=== PATIENT | male | born 1980 | race Caucasian/White ===

== ENCOUNTER 2018-01-13 17:38 | Inpatient (IN) | payer MEDICAID, OTHER ==
[~2018-01-13 17:38] MED LIST: ETOMIDATE 20 MG INJ; ROCURONIUM 50 MG INJ
[2018-01-13] MEDS: LORAZEPAM 2 MG INJ IV ×3 (17:46→19:04)
[2018-01-13] MEDS: SOD CHLORIDE 0.9% 1,000 ML IV (18:07)
[2018-01-13 18:13] LABS: ADD MAN DIFF? NO
[2018-01-13 18:16] LABS: BASOPHIL # 0.1 10^3/ul (0.0-0.1); BASOPHILS % 0.4 % (0.0-2.0); EOSINOPHILS # 0.1 10^3/ul (0.0-0.5); EOSINOPHILS % 1.1 % (0.0-7.0); HEMATOCRIT 46.6 % (42.0-52.0); LYMPHOCYTES # 2.2 10^3/ul (0.8-2.9); LYMPHOCYTES % 19.8 % (15.0-51.0); MEAN CORPUSCULAR HEMOGLOBIN 30.3 pg (29.0-33.0); MEAN CORPUSCULAR HGB CONC 34.3 g/dl (32.0-37.0); MEAN CORPUSCULAR VOLUME 88.3 fl (82.0-101.0); MEAN PLATELET VOLUME 11.4 fl (7.4-10.4); MONOCYTE # 0.7 10^3/ul (0.3-0.9); NEUTROPHIL # 8.2 10^3/ul (1.6-7.5); NEUTROPHILS % 72.3 % (39.0-77.0); PLATELET COUNT 215 10^3/UL (140-415); RED BLOOD COUNT 5.28 10^6/ul (4.70-6.10); RED CELL DISTRIBUTION WIDTH 13.1 % (11.5-14.5)
[2018-01-13 18:16] LABS: WHITE BLOOD COUNT 11.3 10^3/ul (4.8-10.8)
[2018-01-13 18:35] LABS: ALANINE AMINOTRANSFERASE 31 IU/L (13-69); ALBUMIN 4.7 g/dl (3.3-4.9); ALBUMIN/GLOBULIN RATIO 1.38; ALKALINE PHOSPHATASE 98 IU/L (42-121); ANION GAP 18 (8-16); ASPARTATE AMINO TRANSFERASE 23 IU/L (15-46); BILIRUBIN,INDIRECT 0.6 mg/dl (0-1.1); BILIRUBIN,TOTAL 0.6 mg/dl (0.2-1.3); BLOOD UREA NITROGEN 20 mg/dl (7-20); CALCIUM 9.3 mg/dl (8.4-10.2); CARBON DIOXIDE 21 mmol/L (21-31); CHLORIDE 108 mmol/L (97-110); CREATININE 0.91 mg/dl (0.61-1.24); GLUCOSE 112 mg/dl (70-220); POTASSIUM 3.7 mmol/L (3.5-5.1); SODIUM 143 mmol/L (135-144); TOTAL PROTEIN 8.1 g/dl (6.1-8.1)
[2018-01-13 18:36] LABS: ADD UMIC YES; UR ASCORBIC ACID NEGATIVE (NEGATIVE); UR BILIRUBIN (Dip) NEGATIVE (NEGATIVE); UR BLOOD (Dip) 1+ mg/dL (NEGATIVE); UR CLARITY CLOUDY (CLEAR); UR COLOR YELLOW (YELLOW); UR GLUCOSE (Dip) NEGATIVE (NEGATIVE); UR KETONES (Dip) NEGATIVE (NEGATIVE); UR LEUKOCYTE ESTERASE (Dip) NEGATIVE Leu/ul (NEGATIVE); UR MUCUS MANY /HPF (NONE SEEN); UR NITRITE (Dip) NEGATIVE (NEGATIVE); UR RBC 15 /HPF (0-5); UR SPECIFIC GRAVITY (Dip) 1.028 (1.003-1.030); UR TOTAL PROTEIN (Dip) 1+ mg/dl (NEGATIVE); UR UROBILINOGEN (Dip) NEGATIVE (NEGATIVE); UR WBC 0 /HPF (0-5)
[2018-01-13 18:40] LABS: LACTIC ACID 4.4 mmol/L (0.5-2.0)
[2018-01-13 18:41] LABS: ACETAMINOPHEN < 10.0 ug/ml (10.0-30.0); SALICYLATE < 1.0 mg/dl (5.0-30.0)
[2018-01-13 18:45] LABS: AMPHETAMINE/METHAMPHETAMINE Negative (NEGATIVE); BARBITURATES Negative (NEGATIVE); BENZODIAZEPINES Negative (NEGATIVE); CANNABINOIDS Negative (NEGATIVE); COCAINE Negative (NEGATIVE); OPIATES Negative (NEGATIVE); TROPONIN-I < 0.010 ng/ml (0.000-0.120)
[2018-01-13] MEDS: PROPOFOL 100 ML IV ×3 (18:52→22:09)
[2018-01-13 20:13] LABS: AADO2 Arterial 197.5 mmHg (7.0-24.0); Arterial Base Excess -3.7 mmol/L (-3.0-3); Arterial Blood Gas Oxygen Sat 99.5 mmHG (95.0-98.0); Arterial COHb 0.1 % (0.0-3.0); Arterial Fraction of Oxyhgb 98.9 % (93.0-99.0); Arterial HCO3 21.6 mmol/L (22.0-26.0); Arterial MetHb 0.5 % (0.0-1.5); Arterial Total Hemglobin 15.1 g/dl (12.0-18.0); Arterial pCO2 40.2 mmhg (35-45); Blood Gas Mean Airway Pressure 7.6; MODE VENT AC; Site Right Brachial
[2018-01-13] MEDS ORDERED: LORAZEPAM 2 MG INJ IV (20:30)
[2018-01-13] MEDS ORDERED: NACL 0.9% 3 ML SYG IV (20:30)
[2018-01-13] MEDS: D5W-0.45 NACL + KCL 20 MEQ 1,000 ML IV (21:31)
[2018-01-13] MEDS: LEVETIRACETAM 500 MG (PMX) 100 ML IVPB (22:54)
[2018-01-14] MEDS: PROPOFOL 100 ML IV ×2 (02:50→06:53)
[2018-01-14] MEDS: morphine 2 MG INJ IV (03:37)
[2018-01-14 05:05] LABS: ADD MAN DIFF? NO
[2018-01-14 05:25] LABS: BASOPHILS % 0.4 % (0.0-2.0); EOSINOPHILS # 0.1 10^3/ul (0.0-0.5); EOSINOPHILS % 0.8 % (0.0-7.0); HEMATOCRIT 41.6 % (42.0-52.0); HEMOGLOBIN 13.9 g/dl (14.0-18.0); LYMPHOCYTES # 0.9 10^3/ul (0.8-2.9); LYMPHOCYTES % 10.6 % (15.0-51.0); MEAN CORPUSCULAR HEMOGLOBIN 29.6 pg (29.0-33.0); MEAN CORPUSCULAR HGB CONC 33.4 g/dl (32.0-37.0); MEAN CORPUSCULAR VOLUME 88.5 fl (82.0-101.0); MEAN PLATELET VOLUME 11.3 fl (7.4-10.4); MONOCYTE # 0.6 10^3/ul (0.3-0.9); MONOCYTES % 7.1 % (0.0-11.0); NEUTROPHIL # 6.9 10^3/ul (1.6-7.5); NEUTROPHILS % 80.6 % (39.0-77.0); PLATELET COUNT 176 10^3/UL (140-415); RED CELL DISTRIBUTION WIDTH 13.2 % (11.5-14.5)
[2018-01-14 05:25] LABS: WHITE BLOOD COUNT 8.6 10^3/ul (4.8-10.8)
[2018-01-14 05:29] LABS: LACTIC ACID 1.8 mmol/L (0.5-2.0)
[2018-01-14 05:38] LABS: HEMOGLOBIN A1C 5.8 % (0-5.9)
[2018-01-14 05:56] LABS: ALBUMIN/GLOBULIN RATIO 1.24
[2018-01-14] MEDS: PANTOPRAZOLE 40 MG INJ IV (05:58)
[2018-01-14] MEDS: D5W-0.45 NACL + KCL 20 MEQ 1,000 ML IV (05:58)
[2018-01-14 06:20] LABS: ALANINE AMINOTRANSFERASE 14 IU/L (13-69); ALBUMIN 4.1 g/dl (3.3-4.9); ALKALINE PHOSPHATASE 88 IU/L (42-121); ANION GAP 12 (8-16); ASPARTATE AMINO TRANSFERASE 27 IU/L (15-46); BILIRUBIN,INDIRECT 0.5 mg/dl (0-1.1); BILIRUBIN,TOTAL 0.5 mg/dl (0.2-1.3); BLOOD UREA NITROGEN 15 mg/dl (7-20); CALCIUM 8.5 mg/dl (8.4-10.2); CARBON DIOXIDE 25 mmol/L (21-31); CHLORIDE 107 mmol/L (97-110); CREATININE 0.68 mg/dl (0.61-1.24); GLUCOSE 109 mg/dl (70-220); MAGNESIUM 2.1 mg/dl (1.7-2.5); PHOSPHORUS 3.4 mg/dl (2.5-4.9); POTASSIUM 4.6 mmol/L (3.5-5.1); SODIUM 139 mmol/L (135-144); TOTAL PROTEIN 7.4 g/dl (6.1-8.1)
[2018-01-14] MEDS: LEVETIRACETAM 500 MG (PMX) 100 ML IVPB ×2 (09:26→20:47)
[2018-01-14] MEDS: MULTIVITAMINS 10 ML, THIAMINE 100 MG, FOLIC ACID 1 MG in SOD CHLORIDE 0.9% 1,000 ML IVPB (09:26)
[2018-01-14] MEDS: ONDANSETRON 4 MG INJ IV (12:33)
[2018-01-14] MEDS: ACETAMINOPHEN 325 MG TAB PO (20:47)
[2018-01-15] MEDS: PANTOPRAZOLE 40 MG INJ IV (05:55)
[2018-01-15] MEDS: LEVETIRACETAM 500 MG (PMX) 100 ML IVPB ×2 (08:15→20:58)
[2018-01-15] MEDS: MULTIVITAMINS 10 ML, THIAMINE 100 MG, FOLIC ACID 1 MG in SOD CHLORIDE 0.9% 1,000 ML IVPB (08:15)
[2018-01-15] MEDS ORDERED: morphine LIQ (10 MG/5 ML) CUP PO (13:30)
[2018-01-16] MEDS: PANTOPRAZOLE 40 MG INJ IV (06:21)
[2018-01-16] MEDS: LEVETIRACETAM 500 MG (PMX) 100 ML IVPB (09:00)
[2018-01-16] MEDS: MULTIVITAMINS 10 ML, THIAMINE 100 MG, FOLIC ACID 1 MG in SOD CHLORIDE 0.9% 1,000 ML IVPB (09:00)
== END 2018-01-16 10:43 | disposition home or self-care (01) | DRG 896 ==
LOC: MS4 01-16 00:50 → E/R 17:38 → ICU 20:59
PROC: 5A1935Z Respiratory Ventilation, Less than 24 Consecutive Hours (ICD-10-PCS; principal; 2018-01-13)
PROC: 0BH17EZ Insertion of Endotracheal Airway into Trachea, Via Natural or Artificial Opening (ICD-10-PCS; 2018-01-13)
DX: F10.129 Alcohol abuse with intoxication, unspecified (principal); J96.01 Acute respiratory failure with hypoxia; G93.49 Other encephalopathy; R56.9 Unspecified convulsions; Y90.6 Blood alcohol level of 120-199 mg/100 ml; F17.200 Nicotine dependence, unspecified, uncomplicated
CPT/HCPCS: 31500; 36415; 36600; 70450; 70553; 71045; 80053; 80307; 81001; 82803; 82962; 83036; 83605; 83735; 84100; 84484; 85025; 87081; 93005; 94002; 94003; 94770; 95819; 96361; 96374; 96376; 99291-25